=== PATIENT | female | born 1995 | race Caucasian/White ===

== ENCOUNTER → 2016-11-13 | Outpatient (CLI) | payer BC, OTHER ==
[~2016-11-13] MED LIST: CYMBALTA PO; MAXALT MLT10 MG/TAB PO; NEURONTIN PO; PHENERGAN25 M1 DOB; SEROQUEL XR50 MG PO; SUMATRIPTAN SUC25 MG PO
--- NOTE | ~2016-11-13 | NM19 ---
[facility] A Service of [facility] / [facility] RADIOLOGY TEXT RESULTS PATIENT: LAUREN MCKEON LOCATION: [facility] : 95 UNIT #: [id number] AGE: [address]: Jose Miranda MD SEX: F ORDER DR: [id number] [facility]. [place], [place] [address] [id number] O MR#: [id number] Acc #: [id number] NAME: LAUREN MCKEON : 1995 SEX: F STUDY DATE/TIME: 11/13/2016 8:28 UNIT: CGUS ROOM: STUDY DESCRIPTION: NM Gastric Emptying Study Attending Physician: Jose Miranda M.D. Referring Physician: Jose Miranda M.D. Ordering Physician: Jose Miranda M.D. Primary Care Physician: Richard Cervantes M.D. MEDICAL IMAGING REPORT This report is preliminary unless electronic signature is present EXAM Gastric emptying scan, 11/13/2016. HISTORY Abdominal pain, nausea and vomiting for 6 years, getting worse. TECHNIQUE Patient was given 497 mcCi technetium-99m sulfur colloid mixed with 2 scrambled eggs. FINDINGS At 2 hours, the stomach was 78% empty and at 4 hours, the stomach was 88% empty. IMPRESSION The gastric emptying is essentially normal. The stomach was 78% empty at 2 hours, which is greater than the normal value of 60%. At 4 hours, it was only 88% empty; the normal range is expected to be 90%, so it is essentially a normal study. Dictated by... Leobardo Anders M.D. THIS IS AN ELECTRONICALLY VERIFIED REPORT Leobardo Anders M.D. at 11/13/2016 4:37 PM IMANI/gale TD: 11/13/2016 14:27 JOB #: [id number] [facility] A Service of [facility] / [facility] RADIOLOGY TEXT RESULTS PATIENT: LAUREN MCKEON LOCATION: [facility] #: [id number] : 95 UNIT #: [id number] AGE: [address]: Jose Miranda MD SEX: F ORDER DR: MEDICAL IMAGING REPORT Page 1 of 1 COPY
--- NOTE | ~2016-11-13 | US6 ---
[facility] A Service of [facility] RADIOLOGY TEXT RESULTS PATIENT: LAUREN MCKEON LOCATION: [place] : 95 UNIT #: [id number] AGE: [address]: Jose Miranda MD SEX: F ORDER DR: [id number] [place], [place] [address] [id number] O MR#: [id number] Acc #: [id number] NAME: LAUREN MCKEON : 1995 SEX: F STUDY DATE/TIME: 11/13/2016 8:03 UNIT: CGUS ROOM: STUDY DESCRIPTION: US Abdominal Limited Attending Physician: Jose Miranda M.D. Referring Physician: Jose Miranda M.D. Ordering Physician: Jose Miranda M.D. Primary Care Physician: Richard Cervantes M.D. MEDICAL IMAGING REPORT This report is preliminary unless electronic signature is present EXAM Right upper quadrant ultrasound. DATE OF EXAM 11/13/2016 INDICATIONS Upper quadrant pain, nausea and vomiting for 6 years. History of appendectomy. TECHNIQUE Sonographic imaging of the right upper quadrant was performed. COMPARISON No comparisons. FINDINGS Portions of the upper abdomen were obscured by bowel gas and not seen or evaluated. The pancreas is not well visualized or assessed. Survey images of the liver demonstrate no focal liver mass, ascites or intrahepatic ductal dilatation. The liver measures about 15 cm craniocaudal. The gallbladder is sonographically unremarkable. No sonographic Aguirre's sign was described. Extrahepatic common bile duct measures 2-3 mm maximum diameter. The right kidney is nonobstructed and measures 9 cm in long axis. IMPRESSION 1. Negative right upper quadrant ultrasound. Dictated by... Asa Leigh M.D. [facility] A Service [facility] RADIOLOGY TEXT RESULTS PATIENT: LAUREN MCKEON LOCATION: [place] : 95 UNIT #: [id number] AGE: [address]: Jose Miranda MD SEX: F ORDER DR: THIS IS AN ELECTRONICALLY VERIFIED REPORT Asa Leigh M.D. at 11/13/2016 5:03 PM Gonzalez TD: 11/13/2016 15:09 JOB #: [id number] MEDICAL IMAGING REPORT Page 1 of 1 COPY
== END | disposition home or self-care (01) ==
LOC: CGUS 07:19
DX: R10.9 Unspecified abdominal pain (principal); R11.2 Nausea with vomiting, unspecified
CPT/HCPCS: 76705; 78264; A9541